=== PATIENT | male | born 1990 ===

== ENCOUNTER 2022-01-12 19:00 | Emergency (ER) | payer SELFPAY ==
[~2022-01-12] VITALS: Ht 175.3 cm; Wt 111.1 kg
--- NOTE | 2022-01-12 21:35 | NUR ---
BIBS FOR C/O R SIDED SHYARP CONSTANT ABD PAIN SINCE 1200XTODAY. DENIES ANY NASUEA, VOMITING, OR DIARRHEA. DENIES ANY UNUSUAL ORAL INTAKE BUT STATES HE HAS NOT EATEN MUCH SINCE HIS FLIGHT LAST NIGHT. PAIN AGGRAVATED WITH MOVEMENT AND BREATHING 12/10. DENIES ANY PAIN WITH URINATION. PT AWAKE AND ALERT X4 BREATHING EVEN AND UNLABORED. V/S WNL.
--- NOTE | 2022-01-12 21:40 | NUR ---
URINE COLLECTED AND SENT TO LAB
--- NOTE | 2022-01-12 21:41 | NUR ---
20G IV ESTABLISHED AT [facility]. BLOOD DRAWN AND SENT TO LAB.
--- NOTE | 2022-01-12 21:44 | NUR ---
PT TRANSPORTED TO CT VIA WHEELCHAIR
[2022-01-12 21:52] LABS: BASOPHILS % (AUTO) 0.1 % (0.0-2.0); EOSINOPHILS % (AUTO) 0.3 % (0.0-6.0); HEMATOCRIT 46 % (39-51); HEMOGLOBIN 15.8 g/dL (13.5-17.5); LYMPHOCYTES # (AUTO) 0.9 K/uL (0.8-4.8); LYMPHOCYTES % (AUTO) 6.1 % (20.0-44.0); MEAN CORPUSCULAR HGB CONC 34 g/dl (31.0-36.0); MEAN CORPUSCULAR VOLUME 89 fL (80-96); MONOCYTES % (AUTO) 6.7 % (2.0-12.0); NEUTROPHILS # (AUTO) 13.3 K/uL (1.8-8.9); NEUTROPHILS % (AUTO) 86.8 % (43.0-81.0); PLATELET COUNT (AUTO) 275 K/uL (150-450); RED BLOOD CELL COUNT(AUTO) 5.21 MIL/uL (4.5-6.0); WHITE BLOOD COUNT (AUTO) 15.3 K/uL (4.3-11.0)
[2022-01-12 22:11] LABS: BILIRUBIN,URINE NEGATIVE (NEGATIVE); COLOR,URINE YELLOW (YELLOW); LEUKOCYTE ESTERASE ,URINE NEGATIVE (NEGATIVE); NITRITE, URINE NEGATIVE (NEGATIVE); PH,URINE 6.5 (5.0-8.0); PROTEIN,URINE NEGATIVE (NEGATIVE); UGLUCOSE NEGATIVE (NEGATIVE)
[2022-01-12] MEDS ORDERED: MORPHINE SULFATE INJ 2 MG/ML DISP.SYRIN ONE (22:18)
[2022-01-12] MEDS ORDERED: ONDANSETRON HCL/PF 4 MG/2 ML VIAL ONE (22:18)
[2022-01-12 22:19] LABS: BACTERIA,URINE None seen /HPF (None Seen); SQUAMOUS EPITHELIAL CELL,UR 0-2 /HPF (None Seen); WBC,URINE 0-2 /HPF (0-3)
[2022-01-12 22:22] LABS: ALBUMIN 4.5 g/dL (3.4-5.0); BILIRUBIN,DIRECT 0.3 mg/dL (0.0-0.2); BILIRUBIN,TOTAL 1.4 mg/dL (0.2-1.0); CALCIUM, SERUM 9.3 mg/dL (8.5-10.1); CREATININE 1.1 mg/dL (0.6-1.3); TOTAL PROTEIN, SERUM 8.2 g/dL (6.4-8.2)
[2022-01-12] MEDS ORDERED: MORPHINE SULFATE INJ 2 MG/ML DISP.SYRIN IV ONE (22:30)
[2022-01-12] MEDS ORDERED: ONDANSETRON HCL/PF 4 MG/2 ML VIAL IVP ONE (22:30)
[2022-01-12] MEDS ORDERED: IV NS 0.9% 1,000 ML BAG IV ONE (22:30)
[2022-01-12] MEDS ORDERED: CEFTRIAXONE 1GM BAG (ER ONLY) 1 GM/50 ML PIGGYBACK IV ONE (23:00)
[2022-01-12] MEDS ORDERED: FLAGYL/NS RTU 500 MG/100 ML PIGGYBACK IV ONE (23:00)
[2022-01-12] MEDS ORDERED: CEFTRIAXONE 1GM BAG (ER ONLY) 100 ML IV ONE (23:17)
[2022-01-12] MEDS ORDERED: IBUP-1955 PO (23:17)
[2022-01-12] MEDS ORDERED: AMOX-430 PO (23:17)
[2022-01-12] MEDS ORDERED: HYDR-4303 PO (23:25)
[2022-01-12] MEDS ORDERED: KETOROLAC TROMETHAMINE INJ 30 MG/ML VIAL ONE (23:27)
[2022-01-12] MEDS ORDERED: KETOROLAC TROMETHAMINE INJ 30 MG/ML VIAL IV ONE (23:30)
--- NOTE | 2022-01-12 23:39 | NUR ---
Patient discharged to home in stable condition. Written and verbal after care instructions given. Patient verbalizes understanding of instruction.IV removed. Catheter intact and site benign. Pressure and 4x4 applied to site. No bleeding noted.
[2022-01-12 23:48] VITALS: BP 138/76
== END 2022-01-12 23:48 | disposition home or self-care (01) ==
LOC: ER 19:09
DX: K57.32 Diverticulitis of large intestine without perforation or abscess without bleeding (principal); Z60.2 Problems related to living alone; Z79.899 Other long term (current) drug therapy
CPT/HCPCS: 99284; 74176; 96365; 96375; 96361; 85025; 80048; 83690; 80076; 81001; 36415; J1885; J2405; J7030; J2270; J0696